=== PATIENT | male | born 2000 | race Caucasian/White ===

== ENCOUNTER 2024-06-16 09:47 | Outpatient (AMB) | payer OTHER, SELFPAY ==
[2024-06-16 09:52] VITALS: BP 110/58; PULSE 76; O2SAT 99; BMI 31.9
--- NOTE | 2024-06-16 09:52 | MHC.PC.OV ---
Vital Signs 06/16/24 09:52 Height 6 ft 1 in Weight 242 lb BMI 31.9 BP 110/58 L Blood Pressure Location Rt brachial Position Sitting Pulse 76 Pulse Source Pulse Oximeter Pulse Oximetry (%) 99 Oxygen Delivery Method Room Air Intake Visit Reasons: Etablish care Intake Note: Patient is here to establish care and reports he has no concerns at this time. Termite Control Technician Required: No Accompanied by: Self / Same As Patient Allergies No Known Allergies Allergy (Verified 06/16/24 10:00) Tobacco use date assessed: 06/16/24 Dental Screening Dental Screen Date: 06/16/24 Did you have a dental visit in the last 12 months?: Yes Did you have a dental problem in the last 6 months where you did not have access to dental care?: No Was dental information given to patient?: Patient has dentist HPI HPI Comments History of Present Illness Details The patient is a 24 year old male with a past medical history of hyperlipidemia, low vitamin, obesity presenting for physical exam No concerns today. 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 Not exercising regularly. Lipids ordered Tdap 2012-declines today. ROS CONSTITUTIONAL: Denies weight loss, fever and chills. HEENT: Denies changes in vision and hearing. RESPIRATORY: Denies SOB and cough. CV: Denies palpitations and CP GI: Denies abdominal pain, nausea, vomiting and diarrhea. : Denies dysuria and urinary frequency. MSK: Denies new myalgia and joint pain. SKIN: Denies rash and pruritus. NEUROLOGICAL: Denies headache PSYCHIATRIC: Denies recent changes in mood. PHYSICAL EXAM: GENERAL: Alert and oriented x 3. NAD EYES: EOMI. Anicteric. HENT: Moist mucous membranes. No scleral icterus. No cervical lymphadenopathy. LUNGS: Clear to auscultation bilaterally. CARDIOVASCULAR: Regular rate and rhythm. No murmur. No JVD. ABDOMEN: Soft, non-tender +bs EXTREMITIES: No edema. Non-tender. SKIN: No rashes or lesions. Warm. NEUROLOGIC: No focal neurological deficits. CN II-XII grossly intact PSYCHIATRIC: Cooperative. Appropriate mood and affect [facility] Medical History Hyperlipidemia Surgical History No pertinent past surgical history Family History Mother Breast cancer Social History Household Members: Family Housing: House Are you a primary medication care manager to a significant other at home: No Do you presently have visiting nurse or other home services: No 75 years or older and lives alone: No Alcohol intake: current Alcohol intake frequency: holidays/special occasions only Alcohol type: beer Patient Tobacco Use Status: Never used Tobacco e-Cigarette/Vaping Use: Never Used service: No Current occupational status: employed Current occupation: [employer] Cognitive needs: No Hearing needs: No Vision needs: No Questionnaire PHQ-9 Over the last 2 weeks, how often have you been bothered by any of the following problems? 1. Little interest or pleasure in doing things: not at all 2. Feeling down, depressed, or hopeless: not at all 3. Trouble falling or staying asleep, or sleeping too much: not at all 4. Feeling tired or having little energy: not at all 5. Poor appetite or overeating: not at all 6. Feeling bad about yourself - or that you are a failure or have let yourself or your family down: not at all 7. Trouble concentrating on things, such as reading the newspaper or watching television: not at all 8. Moving or speaking so slowly that other people could have noticed. Or the opposite - being so fidgety or restless that you have been moving around a lot more than usual: not at all 9. Thoughts that you would be better off or of hurting yourself in some way: not at all Total score: 0 Depression Screening Interpretation: Negative (neg) Depression Screening Done: Yes 98929 - PHQ-9 Billing: Yes Source: Developed by Drs. Marshall Anne, Wendy Mcgregor, Watson Quiroz and colleagues, with an educational marcell from [employer]. Thrive Questionnaire Date Thrive assessed: 06/16/24 I am a: Patient What is your living situation today?: I have a steady place to live Within the past 12 months, did the food you bought not last and you didn't have the money to get more?: Never true Within the past 12 months, did you worry whether your food would run out before you got money to buy more?: Never true Do you have trouble paying for medicines?: No Do you have trouble getting transportation to medical appointments?: No Do you have trouble paying your heating and electricity bill?: No Do you have trouble taking care of your child, family member or friend?: No Do you have trouble with day-to-day activities such as bathing, preparing meals, shopping, managing finances, etc.?: No Are you currently unemployed and looking for a job?: No Are you interested in more education?: No Please select the resources that you would like help with: None Currently or been in a relationship where the following occur: No concerns reported THRIVE Score: 0 AUDIT C Alcohol Use Questionnaire (AUDIT-C) 1. How often do you have a drink containing alcohol?: Monthly or less 2. How many drinks containing alcohol do you have on a typical day when you are drinking?: 1 or 2 3. How often do you have six or more drinks on one occasion?: Never Total Score: 1 ROBYN-7 AMB Questionnaire ROBYN-7 Date ROBYN - 7 assessed: 06/16/24 Feeling nervous, anxious, or on edge: 0 = Not at all Not being able to stop or control worryin = Not at all Worrying too much about different things: 0 = Not at all Trouble relaxin = Not at all Being so restless that it is hard to sit still: 0 = Not at all Becoming easily annoyed or irritable: 0 = Not at all Feeling afraid as if something awful might happen: 0 = Not at all Total ROBYN-7 score (0-4 normal; 5-9 mild; 10-14 moderate; 15-21 severe): 0 Source: Developed by Drs. Marshall Anne, Wendy Mcgregor, Watson Quiroz and colleagues, with an educational marcell from [employer]. ROBYN-7 Assessment Billing ROBYN-7 Assessment Tool: ROBYN-7 Assessment 45953 Physical exam (Primary Care) Vital Signs: Last Vital Signs Pulse 76 06/16/24 09:52 BP 110/58 L 06/16/24 09:52 Pulse Ox 99 06/16/24 09:52 Oxygen Delivery Method Room Air 06/16/24 09:52 BMI result Body Mass Index 31.9 Tobacco/Smoking Status: Tobacco use Status Tobacco use date assessed 06/16/24 06/16/24 10:02 Patient Tobacco Use Status Never used Tobacco 06/16/24 10:02 e-Cigarette/Vaping Use Never Used 06/16/24 10:02 PHQ-9: PHQ-9 Score PHQ-9: Total score 0 06/16/24 14:02 Depression Screening Interpretation: Negative (neg) Thrive Assessment: Date of Thrive Assessment Date Thrive assessed 06/16/24 06/16/24 10:34 Currently or been in a relationship where the following occur: No concerns reported Assessment and Plan Assessment & Plan (1) Encounter for physical examination: Code(s): Z00.00 - Encounter for general adult medical examination without abnormal findings Plan: Preventive measures for age discussed Declines tetanus Labs ordered-f/up hyperlipemia obesity-tsh ordered Orders: Orders Complete Blood Count Auto Diff Today E78.5 - Hyperlipidemia, unspecified, Z00.00 - Encounter for general adult medical examination without abnormal findings, Z13.0 - Encounter for screening for diseases of the blood and blood-forming organs and certain disorders involving the immune mechanism, Z13.228 - Encounter for screening for other metabolic disorders Lipid Panel Today E78.5 - Hyperlipidemia, unspecified, Z00.00 - Encounter for general adult medical examination without abnormal findings, Z13.0 - Encounter for screening for diseases of the blood and blood-forming organs and certain disorders involving the immune mechanism, Z13.228 - Encounter for screening for other metabolic disorders Comprehensive Met. Panel Today E78.5 - Hyperlipidemia, unspecified, Z00.00 - Encounter for general adult medical examination without abnormal findings, Z13.0 - Encounter for screening for diseases of the blood and blood-forming organs and certain disorders involving the immune mechanism, Z13.228 - Encounter for screening for other metabolic disorders TSH reflex Free T4 Today E78.5 - Hyperlipidemia, unspecified, Z00.00 - Encounter for general adult medical examination without abnormal findings, Z13.0 - Encounter for screening for diseases of the blood and blood-forming organs and certain disorders involving the immune mechanism, Z13.228 - Encounter for screening for other metabolic disorders Coding Level of Care Code Est Pt Prev Care 18-39y(99757) Diagnoses Encounter for physical examination Z00.00 Additional Codes ROBYN-7 Assessment Billing - ROBYN-7 Assessment Tool: ROBYN-7 Assessment 18924 ([id number])
== END 2024-06-16 10:23 | disposition home or self-care (01) ==
PROVIDERS: PCP Internal Medicine; Visit Provider Internal Medicine
DX: Z00.00 Encounter for general adult medical examination without abnormal findings (principal)
CPT/HCPCS: 99395

== ENCOUNTER 2025-06-19 08:21 | Outpatient (AMB) | payer OTHER, SELFPAY ==
--- NOTE | 2025-06-19 08:24 | MHC.PC.OV ---
Vital Signs 06/19/25 08:28 Height 6 ft 1 in Weight 280 lb 6 oz BMI 37.0 BP 126/70 Blood Pressure Location Rt brachial Position Sitting Pulse 75 Pulse Source Pulse Oximeter Temp 98.2 F Temp Source Temporal Artery Scan Pulse Oximetry (%) 97 Oxygen Delivery Method Room Air Intake Visit Reasons: 1 Year Intake Note: Chris presents in the office today for his annual physical. Allergies No Known Allergies Allergy (Verified 06/19/25 08:27) Tobacco use date assessed: 06/19/25 Dental Screening Dental Screen Date: 06/19/25 Did you have a dental visit in the last 12 months?: Yes Did you have a dental problem in the last 6 months where you did not have access to dental care?: No Was dental information given to patient?: Patient has dentist HPI HPI Comments History of Present Illness Details The patient is a 24 year old male with a past medical history of hyperlipidemia, low vitamin, obesity presenting for physical exam No concerns today. 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 Not exercising regularly. Weight gain over the past year-mom has brain tumor and has had seizures. Has been difficult on him. Mild depressive symptoms-declines referral/medications Follows with dermatology-[facility] Tdap 2013-declines . ROS CONSTITUTIONAL: Denies weight loss, fever and chills. HEENT: Denies changes in vision and hearing. RESPIRATORY: Denies SOB and cough. CV: Denies palpitations and CP GI: Denies abdominal pain, nausea, vomiting and diarrhea. : Denies dysuria and urinary frequency. MSK: Denies new myalgia and joint pain. SKIN: Denies rash and pruritus. NEUROLOGICAL: Denies headache PSYCHIATRIC: see HPI PHYSICAL EXAM: GENERAL: Alert and oriented x 3. NAD EYES: EOMI. Anicteric. HENT: Moist mucous membranes. No scleral icterus. No cervical lymphadenopathy. LUNGS: Clear to auscultation bilaterally. CARDIOVASCULAR: Regular rate and rhythm. No murmur. No JVD. ABDOMEN: Soft, non-tender +bs EXTREMITIES: No edema. Non-tender. : Declines SKIN: No rashes or lesions. Warm. NEUROLOGIC: No focal neurological deficits. CN II-XII grossly intact PSYCHIATRIC: Cooperative. Appropriate mood and affect [facility] Medical History Hyperlipidemia Surgical History No pertinent past surgical history Family History Mother Breast cancer Social History Household Members: Family Housing: House Are you a primary healthcare management to a significant other at home: No Do you presently have visiting nurse or other home services: No 75 years or older and lives alone: No Alcohol intake: current Alcohol intake frequency: holidays/special occasions only Alcohol type: beer Patient Tobacco Use Status: Never used Tobacco e-Cigarette/Vaping Use: Never Used Second Hand Smoke Exposure: No Use of substances other than those prescribed or required for medical reasons: No service: No Current occupational status: employed Current occupation: [employer] Cognitive needs: No Hearing needs: No Vision needs: No Questionnaire PHQ-9 Over the last 2 weeks, how often have you been bothered by any of the following problems? 1. Little interest or pleasure in doing things: not at all 2. Feeling down, depressed, or hopeless: not at all 3. Trouble falling or staying asleep, or sleeping too much: not at all 4. Feeling tired or having little energy: not at all 5. Poor appetite or overeating: not at all 6. Feeling bad about yourself - or that you are a failure or have let yourself or your family down: not at all 7. Trouble concentrating on things, such as reading the newspaper or watching television: not at all 8. Moving or speaking so slowly that other people could have noticed. Or the opposite - being so fidgety or restless that you have been moving around a lot more than usual: not at all 9. Thoughts that you would be better off or of hurting yourself in some way: not at all Total score: 0 Depression Screening Interpretation: Negative Depression Screening Done: Yes 16725 - PHQ-9 Billing: Yes Source: Developed by Drs. Marshall Anne, Wendy Mcgregor, Watson Quiroz and colleagues, with an educational marcell from [employer]. Thrive Questionnaire Date Thrive assessed: 06/19/25 I am a: Patient What is your living situation today?: I have a steady place to live Within the past 12 months, did the food you bought not last and you didn't have the money to get more?: Never true Within the past 12 months, did you worry whether your food would run out before you got money to buy more?: Never true Do you have trouble paying for medicines?: No Do you have trouble getting transportation to medical appointments?: No Do you have trouble paying your heating and electricity bill?: No Do you have trouble taking care of your child, family member or friend?: No Do you have trouble with day-to-day activities such as bathing, preparing meals, shopping, managing finances, etc.?: No Are you currently unemployed and looking for a job?: No Are you interested in more education?: No Please select the resources that you would like help with: None Currently or been in a relationship where the following occur: No concerns reported THRIVE Score: 0 AUDIT C Alcohol Use Questionnaire (AUDIT-C) 1. How often do you have a drink containing alcohol?: Never 2. How many drinks containing alcohol do you have on a typical day when you are drinking?: 1 or 2 3. How often do you have six or more drinks on one occasion?: Never Total Score: 0 ROBYN-7 AMB Questionnaire ROBYN-7 Date ROBYN - 7 assessed: 06/19/25 Feeling nervous, anxious, or on edge: 0 = Not at all Not being able to stop or control worryin = Not at all Worrying too much about different things: 0 = Not at all Trouble relaxin = Not at all Being so restless that it is hard to sit still: 0 = Not at all Becoming easily annoyed or irritable: 0 = Not at all Feeling afraid as if something awful might happen: 0 = Not at all Total ROBYN-7 score (0-4 normal; 5-9 mild; 10-14 moderate; 15-21 severe): 0 Source: Developed by Drs. Marshall Anne, Wendy Mcgregor, Watson Quiroz and colleagues, with an educational marcell from [employer]. ROBYN-7 Assessment Billing ROBYN-7 Assessment Tool: ROBYN-7 Assessment 44550 Physical exam (Primary Care) Vital Signs: Last Vital Signs Temp 98.2 F 06/19/25 08:28 Pulse 75 06/19/25 08:28 BP 126/70 06/19/25 08:28 Pulse Ox 97 06/19/25 08:28 Oxygen Delivery Method Room Air 06/19/25 08:28 BMI result Body Mass Index 37.0 Tobacco/Smoking Status: Tobacco use Status Tobacco use date assessed 06/19/25 06/19/25 08:31 Patient Tobacco Use Status Never used Tobacco 06/19/25 08:28 e-Cigarette/Vaping Use Never Used 06/19/25 08:28 PHQ-9: PHQ-9 Score PHQ-9: Total score 0 06/19/25 08:26 Depression Screening Interpretation: Negative Thrive Assessment: Date of Thrive Assessment Date Thrive assessed 06/19/25 06/19/25 08:26 Currently or been in a relationship where the following occur: No concerns reported Coding Level of Care Code Est Pt Prev Care 18-39y(40141) Diagnoses Encounter for physical examination Z00.00 Hyperlipidemia, unspecified hyperlipidemia type E78.5 Hyperlipidemia type: unspecified Additional Codes ROBYN-7 Assessment Billing - ROBYN-7 Assessment Tool: ROBYN-7 Assessment 24509 ([id number]) PHQ-9 - 48264 - PHQ-9 Billing: Yes ([id number]) Assessment & Plan Assessment & Plan (1) Encounter for physical examination: Code(s): Z00.00 - Encounter for general adult medical examination without abnormal findings (2) Hyperlipidemia: Code(s): E78.5 - Hyperlipidemia, unspecified Category: Medical Qualifiers: Hyperlipidemia type: unspecified Qualified Code(s): E78.5 - Hyperlipidemia, unspecified Plan CPE Interval history reviewed Preventive measures for age discussed Weight gain, obesity. Declines phentermine etc. Stress, depression-declines referral, meds Declines tdap Labs ordered-plans to do them at [facility] Orders: Orders Complete Blood Count Auto Diff Today E66.9 - Obesity, unspecified, E78.5 - Hyperlipidemia, unspecified, Z13.0 - Encounter for screening for diseases of the blood and blood-forming organs and certain disorders involving the immune mechanism, Z13.228 - Encounter for screening for other metabolic disorders Hemoglobin A1c Today E66.9 - Obesity, unspecified, E78.5 - Hyperlipidemia, unspecified, Z13.0 - Encounter for screening for diseases of the blood and blood-forming organs and certain disorders involving the immune mechanism, Z13.228 - Encounter for screening for other metabolic disorders TSH reflex Free T4 Today R63.5 - Abnormal weight gain Comprehensive Met. Panel Today E66.9 - Obesity, unspecified, E78.5 - Hyperlipidemia, unspecified, Z13.0 - Encounter for screening for diseases of the blood and blood-forming organs and certain disorders involving the immune mechanism, Z13.228 - Encounter for screening for other metabolic disorders Lipid Panel Today E66.9 - Obesity, unspecified, E78.5 - Hyperlipidemia, unspecified, Z13.0 - Encounter for screening for diseases of the blood and blood-forming organs and certain disorders involving the immune mechanism, Z13.228 - Encounter for screening for other metabolic disorders
[2025-06-19 08:28] VITALS: BP 126/70; PULSE 75; TEMP 36.8; O2SAT 97; BMI 37.0
--- OUTSIDE RECORDS SUMMARY | 2025-06-19 08:30 | XMS_ITS | Clinical Summary ---
Author Organization [facility] ity Address [address] [place] [address] Care Team Providers Care Maintenance Planner Name Role Phone Unavailable Primary Care Provider Unavailabl e Social History Tobacco Use Types Packs/Day Years Used Date Smoking Tobacco: Never Assessed Sex and Gender Information Value Date Recorded Sex Assigned at Not on file Legal Sex Male 6:08 PM EST Gender Identity Not on file Sexual Orientation Not on file Plan of Treatment Health Maintenance Due Date Last Done Comments HPV Vaccines (1 - Male 3-dos e series) 2016 DTaP,Tdap,and Td Vaccines (1 - Tdap) 2020 Hepatitis B Vaccines (1 of 3 - 19+ 3-dose series) 2020 COVID-19 Vaccine (1 - 2023-2 5 season) 2024 Depression Screening 11/22/2024 Influenza Vaccine (#1) 2025 HIB Vaccines Aged Out No longer eligi ble based on patient's age to complete this topic Hepatitis A Vaccines Aged Out No long er eligible based on patient's age to complete this topic IPV Vaccines Aged Out No longer eligi ble based on patient's age to complete this topic MMR Vaccines Aged Out No longer eligi ble based on patient's age to complete this topic Meningococcal ACWY Vaccine Aged Out N o longer eligible based on patient's age to complete this topic Meningococcal B Vaccine Aged Out No l onger eligible based on patient's age to complete this topic Pneumococcal Vaccine: Pediat rics (0 to 5 Years) and At-Risk Patients (6 to 49 Years) Aged Out No longer eligible b ased on patient's age to complete this topic RSV Immunization Patients Un sachin 20 months Aged Out No longer eligible b ased on patient's age to complete this topic Varicella Vaccines Aged Out No longer eligible based on patient's age to complete this topic
== END 2025-06-19 09:03 | disposition home or self-care (01) ==
LOC: HO.HMCFM 08:22
PROVIDERS: PCP Internal Medicine; Visit Provider Internal Medicine
DX: Z00.00 Encounter for general adult medical examination without abnormal findings (principal); E78.5 Hyperlipidemia, unspecified

== ENCOUNTER → 2025-06-19 08:21 | Outpatient (BNVA) | payer OTHER, SELFPAY | PROVIDERS: PCP Internal Medicine; Visit Provider Internal Medicine | DX: Z00.00 Encounter for general adult medical examination without abnormal findings (principal); Z13.31 Encounter for screening for depression; Z13.30 Encounter for screening examination for mental health and behavioral disorders, unspecified; E78.5 Hyperlipidemia, unspecified | CPT/HCPCS: 96127 ==

== ENCOUNTER 2025-08-31 12:52 | Outpatient (AMB) | payer OTHER, SELFPAY ==
--- NOTE | 2025-08-31 12:54 | A.OFFPC_ITS ---
Vital Signs 08/31/25 13:00 08/31/25 13:14 Height 6 ft 1 in Weight 293 lb BMI 38.7 BP 162/82 H 164/80 H Blood Pressure Location Lt brachial Lt brachial Position Sitting Sitting Respiration 14 Pulse 93 Pulse Source Pulse Oximeter Temp 97.1 F Temp Source Oral Pulse Oximetry (%) 98 Oxygen Delivery Method Room Air Intake Visit Reasons: headache, skin on forehead numb Intake Note: Patient c/o headache, feeling numb on his left side half of his face x 2 weeks on and off. It Analyst Required: No Allergies No Known Allergies Allergy (Verified 08/31/25 12:55) Medication List - Last Reconciled 08/31/25 by MARGARET Robles-BC biotin (Hair, Skin and Nails (biotin)) mcg PO Tobacco use date assessed: 08/31/25 Dental Screening Dental Screen Date: 08/31/25 Did you have a dental visit in the last 12 months?: Yes Did you have a dental problem in the last 6 months where you did not have access to dental care?: No Was dental information given to patient?: Patient has dentist HPI HPI Comments History of Present Illness Details History of Present Illness The patient is a 25-year-old male w/ past medical history of hyperlipidemia, low vitamin, obesity presenting with tingling in the face and sinusitis. Several weeks ago has a Root canal L failed Sent to [facility] brothers d/t abcess in the cheek Tooth pulled all sx improved Then became Sick with URI then ff'd w/ tingling in the L cheek; he returned to [facility] who told him it was not related to extraction and he needed to see neuro This caused panic as his mom has brain ca. Went to dentist yesterday Xray done told tooth was fine but sinus was filled Given amox and started last night took 2 doses and this has improved his sx; though he cont to have tingling in L side of his face w/o other neuro deficits Does have some pressure when bending over putting his shoes on. Denies fever, chills, change in vision, speech, trouble swallowing, headache. BP is elevated. States nervous wreck. Review of Systems - Neurological: Reports tingling and num bness on left side of the face. Denies changes in vision, speech, or swallowing difficulties. - Respiratory: Reports nasal congestion with runny nose. - Cardiovascular: Denies chest pain. Rep orts elevated blood pressure readings. - General: Denies fever or chills. Physical Exam General: Well developed, well nourished, in no acute distress. Appears stated age. Head: Normocephalic, atraumatic. Eyes: Pupils are equal, round and reactive to light and accommodation. Conjunctivae are clear. Vision grossly normal. Ears: cerumen impaction in L;TM intact and clear on R Nose: L maxillary and frontal sinus TTP; turbinates pale and edematous worse on the L. Pharynx: WNL Neck: supple, FROM. No adenopathy Pulses: Peripheral pulses are equal and palpable bilaterally. Extremities: No clubbing, cyanosis nor edema is noted. Neuro: Gross normal neuro exam. Psych: Mood and affect appropriate. Discussion Notes I discussed with the patient that the facial tingling is likely due to sinusitis, other DDx include Mora's pals; though no sx present on exam. I reassured him that brain cancer is unlikely given the current symptoms. I explained the switch from amoxicillin to Augmentin to better target the sinus infection and advised him to monitor blood pressure, particularly given the influence of anxiety. Follow-up after the course of antibiotics was recommended to assess symptom resolution and evaluate blood pressure. I advised against r esorting to violence against the previous healthcare provider despite dissatisfaction and stress from their comments. Patient was given time to ask questions. All questions were answered to their satisfaction. Assessment and Plan 1. Sinusitis - Switch to Augmentin; follow-up after t reatment. 2. Facial Tingling - Likely due to sinusitis/ DDx includes Mora's palsy; reassess post-antibiotics. 3. Family History of Cancer - Unlikely brain cancer; monitor and yandel ssure. 4. Elevated BP - Anxiety-related; follow-up if persists . 5. L cerumen impaction - re-eval next vi sit and lavae if appropriate Declined flu and Tdap today. Patient Instructions - Take Augmentin as prescribed: twice da tali for seven days with food. - Monitor for symptom improvement or wor sening. - Follow up with a clinic appointment af ter finishing antibiotics. - Use patient portal for communication w ith care team. - Report worsening symptoms such as visi on changes or severe headaches. - RTO 09/10 or 09/11 for re-eval Consent I obtained verbal consent from the patient to switch the antibiotic from amoxicillin to Augmentin after discussing the benefits of more comprehensive bacterial coverage. The patient understood the change in prescription and potential side effects, including gastrointestinal upset. We also discussed my assessment regarding the facial tingling and concerns about brain cancer, agreeing to a follow-up plan to reassess symptoms and blood pressure. The patient expressed understanding and agreed to the plan. Patient was informed and verbally consented to the use of an ambient scribe for clinic note documentation during this visit. Total time spent caring for the patient today was 30 minutes. This includes time spent before the visit reviewing the chart, time spent during the visit, and time spent after the visit on documentation, reviewing laboratory results, diagnostic imaging, medications, performing a medically necessary evaluation, counseling on diagnoses, care coordination, ordering appropriate tests, ordering appropriate medications, review of tests performed by other providers, reporting test results with the patient, communication with other healthcare providers. [facility] Medical History Hyperlipidemia Surgical History No pertinent past surgical history Family History Mother Breast cancer Social History Household Members: Family Housing: House Are you a primary ambulatory care to a significant other at home: No Do you presently have visiting nurse or other home services: No 75 years or older and lives alone: No Alcohol intake: current Alcohol intake frequency: holidays/special occasions only Alcohol type: beer Patient Tobacco Use Status: Never used Tobacco e-Cigarette/Vaping Use: Never Used Second Hand Smoke Exposure: No service: No Current occupational status: employed Current occupation: [employer] Cognitive needs: No Hearing needs: No Vision needs: No Questionnaire PHQ-9 Over the last 2 weeks, how often have you been bothered by any of the following problems? 1. Little interest or pleasure in doing things: not at all 2. Feeling down, depressed, or hopeless: not at all 3. Trouble falling or staying asleep, or sleeping too much: not at all 4. Feeling tired or having little energy: not at all 5. Poor appetite or overeating: not at all 6. Feeling bad about yourself - or that you are a failure or have let yourself or your family down: not at all 7. Trouble concentrating on things, such as reading the newspaper or watching television: not at all 8. Moving or speaking so slowly that other people could have noticed. Or the opposite - being so fidgety or restless that you have been moving around a lot more than usual: not at all 9. Thoughts that you would be better off or of hurting yourself in some way: not at all Total score: 0 Depression Screening Interpretation: Negative Depression Screening Done: Yes 18604 - PHQ-9 Billing: Yes Source: Developed by Drs. Marshall Anne, Wendy Mcgregor, Watson Quiroz and colleagues, with an educational marcell from [employer]. Thrive Questionnaire Date Thrive assessed: 08/31/25 I am a: Patient What is your living situation today?: I have a steady place to live Within the past 12 months, did the food you bought not last and you didn't have the money to get more?: Never true Within the past 12 months, did you worry whether your food would run out before you got money to buy more?: Never true Do you have trouble paying for medicines?: No Do you have trouble getting transportation to medical appointments?: No Do you have trouble paying your heating and electricity bill?: No Do you have trouble taking care of your child, family member or friend?: No Do you have trouble with day-to-day activities such as bathing, preparing meals, shopping, managing finances, etc.?: No Are you currently unemployed and looking for a job?: No Are you interested in more education?: No Please select the resources that you would like help with: None Currently or been in a relationship where the following occur: No concerns reported THRIVE Score: 0 ROBYN-7 AMB Questionnaire ROBYN-7 Date ROBYN - 7 assessed: 08/31/25 Feeling nervous, anxious, or on edge: 0 = Not at all Not being able to stop or control worryin = Not at all Worrying too much about different things: 0 = Not at all Trouble relaxin = Not at all Being so restless that it is hard to sit still: 0 = Not at all Becoming easily annoyed or irritable: 0 = Not at all Feeling afraid as if something awful might happen: 0 = Not at all Total ROBYN-7 score (0-4 normal; 5-9 mild; 10-14 moderate; 15-21 severe): 0 Source: Developed by Drs. Marshall Anne, Wendy Mcgregor, Watson Quiroz and colleagues, with an educational marcell from [employer]. ROBYN-7 Assessment Billing ROBYN-7 Assessment Tool: ROBYN-7 Assessment 80546 Physical exam (Primary Care) Vital Signs: Last Vital Signs Temp 97.1 F 08/31/25 13:00 Pulse 93 08/31/25 13:00 Resp 14 08/31/25 13:00 BP 162/82 H 08/31/25 13:00 Pulse Ox 98 08/31/25 13:00 Oxygen Delivery Method Room Air 08/31/25 13:00 BMI result Body Mass Index 38.7 Tobacco/Smoking Status: Tobacco use Status Tobacco use date assessed 08/31/25 08/31/25 12:57 Patient Tobacco Use Status Never used Tobacco 08/31/25 12:57 e-Cigarette/Vaping Use Never Used 08/31/25 12:57 PHQ-9: PHQ-9 Score PHQ-9: Total score 0 08/31/25 12:57 Depression Screening Interpretation: Negative Thrive Assessment: Date of Thrive Assessment Date Thrive assessed 08/31/25 08/31/25 12:57 Currently or been in a relationship where the following occur: No concerns reported Coding Level of Care Code Est Pt Level 4 (04996) Complex EM visit Add On G2211 Diagnoses Influenza vaccination declined Z28.21 Tetanus, diphtheria, and acellular pertussis (Tdap) vaccination declined Z28.21 Elevated BP without diagnosis of hypertension R03.0 Acute bacterial sinusitis J01.90; B96.89 Facial paresthesia R20.2 Impacted cerumen, left ear H61.22 Family history of brain cancer Z80.8 Additional Codes ROBYN-7 Assessment Billing - ROBYN-7 Assessment Tool: ROBYN-7 Assessment [id number] ([id number]) PHQ-9 - 52556 - PHQ-9 Billing: Yes ([id number]) Assessment & Plan Assessment & Plan (1) Influenza vaccination declined: Code(s): Z28.21 - Immunization not carried out because of patient refusal Category: Medical (2) Tetanus, diphtheria, and acellular pertussis (Tdap) vaccination declined: Code(s): Z28.21 - Immunization not carried out because of patient refusal Category: Medical (3) Elevated BP without diagnosis of hypertension: Code(s): R03.0 - Elevated blood-pressure reading, without diagnosis of hypertension Category: Medical (4) Acute bacterial sinusitis: Code(s): J01.90 - Acute sinusitis, unspecified; B96.89 - Other specified bacterial agents as the cause of diseases classified elsewhere Category: Medical (5) Facial paresthesia: Code(s): R20.2 - Paresthesia of skin Category: Medical (6) Impacted cerumen, left ear: Code(s): H61.22 - Impacted cerumen, left ear Category: Medical (7) Family history of brain cancer: Code(s): Z80.8 - Family history of malignant neoplasm of other organs or systems Category: Medical Plan . Medications: New amoxicillin-pot clavulanate 875-125 mg 1 tab PO BID 14 tabs 0RF 7 days
[2025-08-31 13:00] VITALS: BP 162/82; PULSE 93; RESP 14; TEMP 36.2; O2SAT 98; BMI 38.7
[2025-08-31 13:14] VITALS: BP 164/80
== END 2025-08-31 13:25 | disposition home or self-care (01) ==
LOC: HO.HMCFM 12:52
PROVIDERS: PCP Internal Medicine; Visit Provider Nurse Practitioner Family
DX: Z28.21 Immunization not carried out because of patient refusal (principal); R03.0 Elevated blood-pressure reading, without diagnosis of hypertension; J01.90 Acute sinusitis, unspecified; B96.89 Other specified bacterial agents as the cause of diseases classified elsewhere; R20.2 Paresthesia of skin; H61.22 Impacted cerumen, left ear; Z80.8 Family history of malignant neoplasm of other organs or systems

== ENCOUNTER → 2025-08-31 12:52 | Outpatient (BNVA) | payer OTHER, SELFPAY | PROVIDERS: PCP Internal Medicine; Visit Provider Nurse Practitioner Family | DX: R03.0 Elevated blood-pressure reading, without diagnosis of hypertension (principal); J01.90 Acute sinusitis, unspecified; B96.89 Other specified bacterial agents as the cause of diseases classified elsewhere; R20.2 Paresthesia of skin; H61.22 Impacted cerumen, left ear; Z80.8 Family history of malignant neoplasm of other organs or systems; Z28.21 Immunization not carried out because of patient refusal; Z13.31 Encounter for screening for depression; Z13.39 Encounter for screening examination for other mental health and behavioral disorders | CPT/HCPCS: 96127 ==

== ENCOUNTER 2025-09-11 11:35 | Outpatient (AMB) | payer OTHER, SELFPAY ==
--- NOTE | 2025-09-11 11:42 | A.OFFPC_ITS ---
Vital Signs 09/11/25 11:46 Height 6 ft 1 in Weight 285 lb 6 oz BMI 37.6 BP 136/58 L Blood Pressure Location Rt brachial Position Sitting Respiration 14 Pulse 84 Pulse Source Pulse Oximeter Temp 98.3 F Temp Source Oral Pulse Oximetry (%) 98 Oxygen Delivery Method Room Air Intake Visit Reasons: FU sinus infection/tingling L face Intake Note: Follow up sinusitis. Sxs resolved except for a minor headache or numbness in the forehead to around the side of the left side of face. Rope Tow Operator Required: No Allergies No Known Allergies Allergy (Verified 09/11/25 11:45) Tobacco use date assessed: 08/31/25 Dental Screening Dental Screen Date: 08/31/25 HPI HPI Comments History of Present Illness Details The patient is a 25-year-old male w/ past medical history of hyperlipidemia, low vitamin, obesity presenting for follow up sinus infection Seen 08/31 by colleague Several weeks ago has a Root canal L failed Sent to [facility] brothers d/t abcess in the cheek Tooth pulled all sx improved Then became Sick with URI then ff'd w/ tingling in the L cheek; he returned to [facility] who told him it was not related to extraction and he needed to see neuro This caused panic as his mom has brain ca. Went to dentist yesterday Xray done told tooth was fine but sinus was filled Given amox and started last night took 2 doses and this has improved his sx; though he cont to have tingling in L side of his face w/o other neuro deficits He was transitioned to Augmentin, recently completing the course. He notes 90% improvement in symptoms. Still has some fullness and discomfort when working out. Facial tingling has improved ROS see HPI PHYSICAL EXAM: GENERAL: Alert and oriented x 3. NAD EYES: EOMI. Anicteric. HENT: Moist mucous membranes. Left canal cerumen. Boggy nasal mucosa LUNGS: Clear to auscultation bilaterally. CARDIOVASCULAR: Regular rate and rhythm. No murmur. No JVD. ABDOMEN: Soft, non-tender +bs EXTREMITIES: No edema. Non-tender. SKIN: No rashes or lesions. Warm. NEUROLOGIC: No focal neurological deficits. CN II-XII grossly intact PSYCHIATRIC: Cooperative. Appropriate mood and affect [facility] Medical History Hyperlipidemia Surgical History No pertinent past surgical history Family History Mother Breast cancer Social History Household Members: Family Housing: House Are you a primary health care recruiter to a significant other at home: No Do you presently have visiting nurse or other home services: No 75 years or older and lives alone: No Alcohol intake: current Alcohol intake frequency: holidays/special occasions only Alcohol type: beer Patient Tobacco Use Status: Never used Tobacco e-Cigarette/Vaping Use: Never Used Second Hand Smoke Exposure: No service: No Current occupational status: employed Current occupation: [employer] Cognitive needs: No Hearing needs: No Vision needs: No Questionnaire Thrive Questionnaire Date Thrive assessed: 06/18/25 I am a: Patient What is your living situation today?: I have a steady place to live Within the past 12 months, did the food you bought not last and you didn't have the money to get more?: Never true Within the past 12 months, did you worry whether your food would run out before you got money to buy more?: Never true Do you have trouble paying for medicines?: No Do you have trouble getting transportation to medical appointments?: No Do you have trouble paying your heating and electricity bill?: No Do you have trouble taking care of your child, family member or friend?: No Do you have trouble with day-to-day activities such as bathing, preparing meals, shopping, managing finances, etc.?: No Are you currently unemployed and looking for a job?: No Are you interested in more education?: No Please select the resources that you would like help with: None Currently or been in a relationship where the following occur: No concerns reported THRIVE Score: 0 ROBYN-7 AMB Questionnaire ROBYN-7 Date ROBYN - 7 assessed: 08/31/25 Source: Developed by Drs. Marshall Anne, Wendy Mcgregor, Watson Quiroz and colleagues, with an educational marcell from [email or web address]. Physical exam (Primary Care) Vital Signs: Last Vital Signs Temp 98.3 F 09/11/25 11:46 Pulse 84 09/11/25 11:46 Resp 14 09/11/25 11:46 BP 136/58 L 09/11/25 11:46 Pulse Ox 98 09/11/25 11:46 Oxygen Delivery Method Room Air 09/11/25 11:46 BMI result Body Mass Index 37.6 Tobacco/Smoking Status: Tobacco use Status Tobacco use date assessed 08/31/25 09/11/25 11:43 Patient Tobacco Use Status Never used Tobacco 09/11/25 11:43 e-Cigarette/Vaping Use Never Used 09/11/25 11:43 Thrive Assessment: Date of Thrive Assessment Date Thrive assessed 06/18/25 09/11/25 11:43 Currently or been in a relationship where the following occur: No concerns reported Coding Level of Care Code Est Pt Level 3 (22503) Diagnoses Acute bacterial sinusitis J01.90; B96.89 Impacted cerumen, left ear H61.22 Assessment & Plan Assessment & Plan (1) Acute bacterial sinusitis: Code(s): J01.90 - Acute sinusitis, unspecified; B96.89 - Other specified bacterial agents as the cause of diseases classified elsewhere Category: Medical (2) Impacted cerumen, left ear: Code(s): H61.22 - Impacted cerumen, left ear Category: Medical Plan Sinusitis-Much interval improvement. Would extend abx 5-7 days for full symptom eradication If not completely improved would consider imaging/referral Cerumen impaction-left. Debrox x one week Medications: New carbamide peroxide 6.5% (Debrox) 5 drps otic (ears) Q12H 15 mL 0RF 7 days amoxicillin-pot clavulanate 875-125 mg 1 tab PO Q12H 20 tabs 0RF
[2025-09-11 11:46] VITALS: BP 136/58; PULSE 84; RESP 14; TEMP 36.8; O2SAT 98; BMI 37.6
== END 2025-09-11 14:08 | disposition home or self-care (01) ==
LOC: HO.HMCFM 11:36
PROVIDERS: PCP Internal Medicine; Visit Provider Internal Medicine
DX: J01.90 Acute sinusitis, unspecified (principal); B96.89 Other specified bacterial agents as the cause of diseases classified elsewhere; H61.22 Impacted cerumen, left ear

== ENCOUNTER → 2025-11-09 15:40 | Outpatient (BNV) | payer OTHER, SELFPAY | PROVIDERS: PCP Internal Medicine; Visit Provider Radiology Diagnostic Radiology | DX: J34.1 Cyst and mucocele of nose and nasal sinus (principal) | CPT/HCPCS: 70553 ==

== ENCOUNTER 2025-11-09 15:46 | Outpatient (REF) | payer OTHER, SELFPAY ==
--- NOTE | ~2025-11-09 | MR_ITS ---
EXAMINATION: MR BRAIN WITHOUT AND WITH CONTRAST CLINICAL INFORMATION: Frontal headache. COMPARISON: None available. TECHNIQUE: Multiplanar, multisequence MRI of the brain was obtained before and after the intravenous administration of 10 mL Gadavist. FINDINGS: There is no restricted diffusion seen to suspect any acute ischemic changes. There is no magnetic susceptibility artifact to suspect acute or chronic hemorrhage. The faulkner to white matter differences maintained normal. No T2 FLAIR abnormality seen either. No edema or midline shift. The lateral ventricles are symmetrical in size and configuration without enlargement. Normal flow-void signal is seen in major cerebral vasculature. There is normal symmetry of bilateral optic globes, optic nerve and periorbital soft tissues. The sinuses are well-aerated with a small retention cyst left maxillary sinus. The mastoid sinuses are clear. No abnormality seen in the posterior posterior fossa. The cervical medullary junction is normal. Postcontrast no abnormal parenchymal or extra-axial enhancement seen. The scalp soft tissues are normal. MR/MR head/brain wo/w con IMPRESSION: No acute intracranial process seen. Small retention cyst left maxillary sinus. Electronically signed by: Florencio Camacho MD 11/09/2025 05:03 PM [facility]
--- OUTSIDE RECORDS SUMMARY | 2025-11-09 16:42 | XMS_ITS | Clinical Summary ---
Author Organization [facility] ity Address [address] [place] [address] Care Team Providers Care Unit Clerk Name Role Phone Unavailable Primary Care Provider [...] of 3 - 19+ 3-dose series) 2020 Depression Screening 11/22/2024 COVID-19 Vaccine (1 - 2024-2 6 season) 2025 Influenza Vaccine (#1) 2025 RSV Immunization Adult Patie nts (1 - 1-dose 75+ series) 2076 HIB Vaccines Aged Out No longer eligi [...]
== END 2025-11-09 15:47 | disposition home or self-care (01) ==
LOC: HO.MRI 15:46
PROVIDERS: PCP Internal Medicine; Visit Provider Internal Medicine
DX: R20.2 Paresthesia of skin (principal); R51.9 Headache, unspecified; Z80.8 Family history of malignant neoplasm of other organs or systems
CPT/HCPCS: 70553; A9585